=== PATIENT | male | born 1980 | race American Indian/Alaskan Native ===

== ENCOUNTER 2017-10-03 15:56 | Emergency (ER) | payer BC ==
[2017-10-03 16:03] VITALS: BP 115/68
[2017-10-03] MEDS ORDERED: XYLOCAINE 2% INFILTRATI ONE (17:00)
--- NOTE | 2017-10-03 17:04 | Emergency Department Report ---
ED Laceration HPI - HPI Chief Complaint: Wound/Laceration Stated Complaint: LEG LAC Time Seen by Provider: 10/03/17 16:34 Occurred When: Yesterday Location: Lower Extremity (right lower extremity posteriorly) Severity: moderate Tetanus Status: Not up to Date Laceration Symptoms: Yes Pain, No Foreign Body Sensation, No Numbness, No Weakness Other History: This is a 36-year-old -[place] male who presents with a laceration to her right posterior leg. Patient reports slipping in the shower last night around midnight hitting his right leg on the soap reyes in shower. He noticed a large amount of blood from the wound to posterior right leg. He cleaned with soap and water while in shower and apply pressure with a towel. Patient reports falling asleep last night and unable to come here for evaluation. This morning when he woke up he could not stop bleeding from wound. He decided to come in for evaluation. He is unsure of the last time he received a tetanus vaccine. Denies numbness or tingling, swelling, LOC, chest pain, shortness of breath. ED Review of Systems ROS: Stated complaint: LEG LAC Other details as noted in HPI Constitutional: denies: chills, fever Respiratory: denies: cough, shortness of breath, wheezing Cardiovascular: denies: chest pain, palpitations Gastrointestinal: denies: abdominal pain, nausea, diarrhea Skin: lesions (laceration to right lower extremity posteriorly). denies: rash Neurological: denies: headache, weakness, paresthesias Psychiatric: denies: anxiety, depression ED Past Medical Hx - Past Medical History Previous Medical History?: No Hx Kidney Stones: Yes Additional medical history: Kidney stone - Surgical History Past Surgical History?: No - Social History Smoking Status: Never Smoker Substance Use Type: None - Medications Home Medications: Home Medications Medication Instructions Recorded Confirmed Last Taken Type Acetaminophen/Codeine [Tylenol #3] 1 tab PO Q6H PRN #20 tab 12/16/14 Unknown Rx Sulfamethoxazole/Trimethoprim 1 each PO BID #14 tablet 10/03/17 Unknown Rx [Bactrim DS TAB] Laceration Physical Exam - Exam General: Vital signs noted. No distress. Alert and acting appropriately. Wound Length (cm): 2 Laceration Location: Lower Extremity (right lower extremity) Full Body Front + Back: 1 - 2 cm laceration into the wound of right posterior calf, no active bleeding , mild swelling and erythema, no surrounding cellulitis Laceration Exam: Yes Normal Distal CMS, No Foreign Body, No Exposed Tendon, Vessel, or Nerve, No Tendon Injury ED Course Vital Signs 10/03/17 16:00 Temperature 98.6 F Pulse Rate 96 H Respiratory 16 Rate Blood Pressure 115/68 O2 Sat by Pulse 98 Oximetry - Laceration /Wound Repair Right Posterior Calf Wound Location: lower extremity (right posterior calf) Wound Length (cm): 3 Wound's Depth, Shape: into muscle, linear Wound Explored: no foreign body removed Irrigated w/ Saline (ccs): 3 Betadine Prep?: Yes Anesthesia: 1% Lidocaine (2% lidocaine without epi) Volume Anesthetic (ccs): 2 Wound Repaired With: sutures Suture Size/Type: 5:0 Number of Sutures: 4 Layer Closure?: No Deep Layer Suture Size/Type: 5:0 Sterile Dressing Applied?: Yes ED Medical Decision Making - Medical Decision Making This is a 36 y.o. male presents with laceration to right posterior calf from yesterday. Patient examined by me. Vitals normal and patient in no acute distress. Patient is non-toxic appearing and stable. Patient given tetanus vaccine in the ER. Laceration closed with 4 sutures, review know. Discharged home for outpatient treatment with bactrim DS 1 tab by mouth twice a day 7 days. Discussed ER care plan with patient. Patient agreed with plan. F/U with PCP in 2-3 days. Critical care attestation.: If time is entered above; I have spent that time in minutes in the direct care of this critically ill patient, excluding procedure time. ED Disposition Clinical Impression: Laceration of leg, right Qualifiers: Encounter type: initial encounter Qualified Code(s): S81.811A - Laceration without foreign body, right lower leg, initial encounter Disposition: TO HOME OR SELFCARE Is pt being admited?: No Does the pt Need Aspirin: No Condition: Stable Instructions: Suture Care (ED), Laceration (ED) Additional Instructions: Take antibiotics as prescribed for the full course. Keep wound dry and clean for 48 hours. Avoid putting to much tension on wound site. Follow up with Primary Care Provider in 2-3 days. Have sutures removed in 7 days by primary care provider or in ER. Return to ER if red, swollen, foul discharge, or fever. Prescriptions: Sulfamethoxazole/Trimethoprim [Bactrim DS TAB] 1 each PO BID #14 tablet Referrals: [facility] [Outside] - 3-5 Days [facility] [Provider Group] - 3-5 Days [facility] [Provider Group] - 3-5 Days Time of Disposition: 17:56 Print Language: GEORGI[place]
[2017-10-03] MEDS ORDERED: BOOSTRIX IM ONE (18:01)
== END 2017-10-03 18:23 | disposition home or self-care (01) ==
LOC: ED 15:56
DX: S81.811A Laceration without foreign body, right lower leg, initial encounter (principal); Z87.442 Personal history of urinary calculi; W01.118A Fall on same level from slipping, tripping and stumbling with subsequent striking against other sharp object, initial encounter; Y93.89 Activity, other specified; Y92.89 Other specified places as the place of occurrence of the external cause; Y99.8 Other external cause status
CPT/HCPCS: 90471; 90715